=== PATIENT | female | born 1980 | race Two or more races ===

== ENCOUNTER 2019-05-30 13:41 | Emergency (ER) | payer OTHER ==
[~2019-05-30] VITALS: Ht 157.5 cm; Wt 84.4 kg
--- NOTE | 2019-05-30 13:49 | NUR ---
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
--- NOTE | 2019-05-30 13:58 | NUR ---
TEO LEON AT BEDSIDE
[2019-05-30] MEDS ORDERED: LORAZEPAM 1 MG TABLET PO ONE (14:30)
[2019-05-30] MEDS ORDERED: LORAZEPAM 0.5 MG TABLET ONE (14:32)
--- NOTE | 2019-05-30 14:55 | NUR ---
Patient discharged to home in stable condition. Written and verbal after care instructions given. Patient verbalizes understanding of instruction.
[2019-05-30 14:56] VITALS: BP 131/80
== END 2019-05-30 14:58 | disposition home or self-care (01) ==
LOC: ER 13:45
DX: F41.0 Panic disorder [episodic paroxysmal anxiety] (principal); J45.909 Unspecified asthma, uncomplicated